=== PATIENT | male | born 1950 | race Asian ===

== ENCOUNTER 2017-05-07 00:07 | Inpatient (IN) | payer OTHER, MEDICAID ==
[~2017-05-07] VITALS: Ht 170.2 cm; Wt 77.1 kg
[2017-05-07 00:10] VITALS: BP 133/67
--- NOTE | 2017-05-07 00:43 | NUR ---
PT TAKEN TO BED 4
--- NOTE | 2017-05-07 00:50 | NUR ---
PATIENT PRESENTS TO ED WITH C/O CHEST PAIN . PT DENIES N/V/D; SKIN IS PINK/WARM/DRY; AAOX4 WITH EVEN AND STEADY GAIT; LUNGS CLEAR BL; HR EVEN AND REGULAR; PT DENIES ANY FEVER, SOB, OR COUGH AT THIS TIME; PATIENT STATES PAIN OF 5/10 AT THIS TIME; VSS; PATIENT POSITIONED FOR COMFORT; HOB ELEVATED; BEDRAILS UP X2; BED DOWN. ER MD MADE AWARE OF PT STATUS.
[2017-05-07] MEDS ORDERED: ASPIRIN 325 MG TAB PO ONE (00:55)
--- NOTE | 2017-05-07 00:57 | NUR ---
Dr. Navarrete evaluating patient at bedside.
[2017-05-07 01:10] LABS: BASOPHILS # (AUTO) 0.4 K/uL (0.00-0.22); EOSINOPHILS # (AUTO) 0.4 K/uL (0-0.4); WHITE BLOOD COUNT (AUTO) 9.1 K/uL (4.8-10.8)
[2017-05-07 01:14] LABS: HEMATOCRIT 41.4 % (36-52); LYMPHOCYTES % (AUTO) 22.3 % (20.5-51.1); MEAN CORPUSCULAR HEMOGLOBIN 33 pg (27-31); MEAN CORPUSCULAR HGB CONC 34 g/dL (33-37); MEAN CORPUSCULAR VOLUME 99 fL (80-94); MONOCYTES # (AUTO) 1.1 K/uL (0.8-1.0); MONOCYTES % (AUTO) 12.3 % (1.7-9.3); NEUTROPHILS # (AUTO) 5.2 K/uL (1.8-7.7); NEUTROPHILS % (AUTO) 57.4 % (42.2-75.2); PLATELET COUNT (AUTO) 137 K/uL (140-450); RED BLOOD CELL COUNT(AUTO) 4.19 MIL/uL (4.20-6.10); RED CELL DISTRIBUTION WIDTH 11.7 % (11.6-13.7)
[2017-05-07] MEDS ORDERED: ASPI81EC97 PO (01:17)
[2017-05-07] MEDS ORDERED: METO25TA3 PO (01:17)
[2017-05-07] MEDS ORDERED: ATOR10TA PO (01:17)
--- NOTE | 2017-05-07 01:28 | NUR ---
X-Ray at bedside.
[2017-05-07 01:33] LABS: ALBUMIN 3.4 g/dL (3.4-5.0); ANION GAP 10.8 (8-16); CALCIUM 7.8 mg/dL (8.5-10.1); CARBON DIOXIDE 28.8 mmol/L (21-32); CREATININE 0.9 mg/dL (0.6-1.3); POTASSIUM 3.6 mmol/L (3.5-5.1); TOTAL BILIRUBIN 0.3 mg/dL (0.0-1.0); TOTAL PROTEIN, SERUM 6.5 g/dL (6.4-8.2)
[2017-05-07 01:42] LABS: INR 1.1 (0.8-1.2); PARTIAL THROMBOPLASTIN TIME 28.2 secs (22-35.6)
[2017-05-07] MEDS ORDERED: LORazepam 1 MG TAB PO PRN (02:00)
[2017-05-07] MEDS ORDERED: NITROGLYCERIN 0.4 MG TAB SL PRN (02:00)
[2017-05-07] MEDS ORDERED: ALUMINUM HYD/MAG/SIMETHICONE 30 ML UDC PO PRN (02:00)
[2017-05-07] MEDS ORDERED: ONDANSETRON 4 MG/2 ML VIAL IVP PRN (02:00)
[2017-05-07] MEDS ORDERED: ACETAMINOPHEN 325 MG TAB PO PRN (02:00)
[2017-05-07] MEDS ORDERED: HYDROcodone/APAP 5/325 MG 1 TAB TAB PO PRN ×2 (02:00)
[2017-05-07] MEDS ORDERED: MORPHINE SULFATE 2 MG/ML SYR IVP PRN (02:00)
[2017-05-07] MEDS ORDERED: ZOLPIDEM 5 MG TAB PO PRN (02:00)
--- NOTE | 2017-05-07 02:33 | NUR ---
Patient will be admitted to care of DR RICO. Admited to TELE. Will go to room 104B. Belongings list completed. Report to RICK SPAULDING.
--- NOTE | 2017-05-07 03:09 | NUR ---
RECEIVED FROM ER PER JJ AWAKE AND ALERT. SPEAKS GERMAN. NO SOB. 02 SAT AT THIS TIME ROOM AIR 96 %. IVF SITE TO RIGHT WRIST #22. SKIN INTACT. DX. OF CHEST PAIN. TELEMETRY MONITORING. CARE PLANS FOR THE NIGHT DISCUSSED WITH HIM AND ORIENTED TO CALL LIGHT USE FOR ANY HELP HE MAY NEED. DENIES PAIN AT THIS TIME.
[2017-05-07 04:49] VITALS: BP 117/73
--- NOTE | 2017-05-07 05:07 | NUR ---
SLEEPING AT THIS TIME. TELEMETRY MONITORING. NO SOB. NO RESTLESSNESS. CALL LIGHT WITH IN REACH.
--- NOTE | 2017-05-07 07:20 | NUR ---
RECEIVED PATIENT REPORT AT BEDSIDE. PATIENT AWAKE, ALERT, ORIENTED AND AMBULATORY. NO S/S OF DISTRESS NOTED. NO C/O PAIN AT THIS TIME. IV LINE TO THE RIGHT WRIST SALINE LOCKED, IN INTACT AND ASYMPTOMATIC. PATIENT ON TELE MONITORING. BED LOWERED WITH CALL LIGHT WITHIN REACH. WILL CONTINUE TO MONITOR
--- NOTE | 2017-05-07 07:22 | NUR ---
ENDORSED TO THE NEXT RN FOR CONTINUITY OF CARE. AWAKE AND ALERT. PER PT"OK PAIN AND NOT BAD FOR NOW". VERBALIZES WELL. A/O X 4. ROM X 4.
[2017-05-07 08:00] VITALS: BP 115/63
--- NOTE | 2017-05-07 08:22 | NUR ---
PATIENT HAS BEEN SCREENED AND CATEGORIZED MODERATE NUTRITION RISK. PATIENT WILL BE SEEN WITHIN 3-5 DAYS OF ADMISSION. 05/09/17-05/11/[address]
[2017-05-07] MEDS: DOCUSATE SODIUM 100 MG GELCAP PO SCH (08:47)
[2017-05-07] MEDS: ECOTRIN 81 MG TABEC PO SCH (08:47)
[2017-05-07] MEDS: METOPROLOL 25 MG TAB PO SCH (09:00)
--- NOTE | 2017-05-07 09:00 | NUR ---
ADMINISTERED DUE MEDS. PT TOLERATED WELL. NO S/S OF DISTRESS NOTED
[2017-05-07 09:06] LABS: HEMATOCRIT 41.9 % (36-52); HEMOGLOBIN 14.2 g/dL (12.0-18.0); MEAN CORPUSCULAR HEMOGLOBIN 33 pg (27-31); MEAN CORPUSCULAR HGB CONC 34 g/dL (33-37); MEAN CORPUSCULAR VOLUME 98 fL (80-94); PLATELET COUNT (AUTO) 132 K/uL (140-450); RED BLOOD CELL COUNT(AUTO) 4.27 MIL/uL (4.20-6.10); RED CELL DISTRIBUTION WIDTH 11.6 % (11.6-13.7); WHITE BLOOD COUNT (AUTO) 6.3 K/uL (4.8-10.8)
[2017-05-07 09:24] LABS: ANION GAP 9.9 (8-16); CALCIUM 7.8 mg/dL (8.5-10.1); CARBON DIOXIDE 29.8 mmol/L (21-32); CREATININE 0.8 mg/dL (0.6-1.3); POTASSIUM 3.7 mmol/L (3.5-5.1)
[2017-05-07 09:28] LABS: PHOSPHORUS 2.8 mg/dL (2.5-4.9)
[2017-05-07 10:16] LABS: EOSINOPHILS % (MANUAL) 4 % (0-4); LYMPHOCYTES % (MANUAL) 29 % (20-46); MONOCYTES % (MANUAL) 8 % (5-12); NEUTROPHILS % (MANUAL) 59 (43-65); PLATELET ESTIMATE ADEQUATE
--- NOTE | 2017-05-07 10:35 | NUR ---
CM NOTE INITIAL REVIEW FAXED TO [employer] (FAX# [phone]) AND [employer] (FAX# [phone])
[2017-05-07 12:00] VITALS: BP 125/63
--- NOTE | 2017-05-07 12:30 | NUR ---
PATIENT HAVING LUNCH. PT TOLERATING DIET WELL. NO S/S OF DISTRESS NOTED
[2017-05-07 16:00] VITALS: BP 118/52
--- NOTE | 2017-05-07 16:20 | NUR ---
PATIENT ASLEEP IN BED. NO S/S OF DISTRESS NOTED
--- NOTE | 2017-05-07 19:30 | NUR ---
RECEIVED BEDSIDE REPORT FROM EPIFANIO CABRERA. PATIENT IS AWAKE, ALERT, AND IS RESTING IN BED WATCHING TV. NO SIGNS OF SHORTNESS OF BREATH OR DISTRESS NOTED. THERE IS A #22 IN THE PATIENT'S RIGHT WRIST SALINE LOCK. SITE IS DRY, INTACT, AND ASYMPTOMATIC. EXPLAINED PLAN OF CARE TO INCLUDE VITALS Q4H, TELEMETRY MONITORING, AND SCHEDULED MEDICATION ADMINISTRATION. PATIENT VERBALIZED UNDERSTANDING. PATIENT'S NEEDS MET AT THIS TIME. CALL LIGHT WITHIN REACH. WILL CONTINUE TO MONITOR PATIENT.
[2017-05-07 20:00] VITALS: BP 137/71
[2017-05-07] MEDS: ATORVASTATIN 20 MG TAB PO SCH (21:30)
--- NOTE | 2017-05-07 21:35 | NUR ---
TOLERATED DUE MEDICATIONS. NO S/S OF DISTRESS OR DISCOMFORT NOTED. CALL LIGHT WITHIN REACH. CONTINUE TO MONITOR PATIENT.
[2017-05-08] VITALS: BP 113/63
--- NOTE | 2017-05-08 | NUR ---
PATIENT RESTING COMFORTABLY IN BED, BUT CAN BE AROUSED BY NAME. VITALS ARE STABLE WITH NO REPORTS OF PAIN OR DISCOMFORT AT THIS TIME. PATIENT'S NEEDS MET AT THIS TIME. CALL LIGHT WITHIN REACH. CONTINUE TO MONITOR PATIENT.
--- NOTE | 2017-05-08 02:05 | NUR ---
ROUNDED ON PATIENT. PATIENT IS RESTING IN BED WITH NO SIGNS OF ACUTE DISTRESS NOTED. BREATHING IS EVEN AND UNLABORED. CALL LIGHT WITHIN REACH. WILL CONTINUE TO MONITOR PATIENT.
[2017-05-08 04:00] VITALS: BP 126/69
--- NOTE | 2017-05-08 04:00 | NUR ---
PATIENT SELF AMBULATED TO BATHROOM TO VOID. PATIENT SELF AMBULATED BACK TO BED. VITAL SIGNS ARE STABLE. NO S/S OF SOB OR DISTRESS. PATIENT DENIES PAIN OR DISCOMFORT. PATIENT'S NEEDS MET AT THIS TIME. CALL LIGHT WITHIN REACH. CONTINUE TO MONITOR PATIENT.
--- NOTE | 2017-05-08 05:10 | NUR ---
PATIENT IS RESTING COMFORTABLY IN BED WITH NO SIGNS OF DISTRESS OR DISCOMFORT NOTED. CALL LIGHT WITHIN REACH. CONTINUE TO MONITOR PATIENT.
[2017-05-08 07:03] LABS: ANION GAP 8.9 (8-16); CALCIUM 8.1 mg/dL (8.5-10.1); CARBON DIOXIDE 31.9 mmol/L (21-32); CREATININE 0.9 mg/dL (0.7-1.3); POTASSIUM 3.8 mmol/L (3.5-5.1)
--- NOTE | 2017-05-08 07:10 | NUR ---
RECEIVED PATIENT AT BEDSIDE. PATIENT ASLEEP BUT AROUSABLE. NO S/S OF DISTRESS NOTED. NO C/O PAIN AT THIS TIME. PATIENT ON ROOM AIR. PATIENT ON TELE MONITORING. BED LOWERED WITH CALL LIGHT WITHIN REACH. WILL CONTINUE TO MONITOR
[2017-05-08 07:32] LABS: BASOPHILS # (AUTO) 0.4 K/uL (0.00-0.22); BASOPHILS % (AUTO) 4.6 % (0.0-2.0); EOSINOPHILS # (AUTO) 0.3 K/uL (0-0.4); HEMATOCRIT 43.7 % (36-52); HEMOGLOBIN 14.8 g/dL (12.0-18.0); LYMPHOCYTES # (AUTO) 1.8 K/uL (2.0-11.5); LYMPHOCYTES % (AUTO) 19.1 % (20.5-51.1); MEAN CORPUSCULAR HEMOGLOBIN 33 pg (27-31); MEAN CORPUSCULAR HGB CONC 34 g/dL (33-37); MEAN CORPUSCULAR VOLUME 98 fL (80-94); MONOCYTES % (AUTO) 11.3 % (1.7-9.3); NEUTROPHILS # (AUTO) 5.8 K/uL (1.8-7.7); PLATELET COUNT (AUTO) 128 K/uL (140-450); RED BLOOD CELL COUNT(AUTO) 4.46 MIL/uL (4.20-6.10); RED CELL DISTRIBUTION WIDTH 11.7 % (11.6-13.7); WHITE BLOOD COUNT (AUTO) 9.3 K/uL (4.8-10.8)
[2017-05-08 08:00] VITALS: BP 125/73
[2017-05-08] MEDS: METOPROLOL 25 MG TAB PO SCH (09:00)
[2017-05-08] MEDS: ECOTRIN 81 MG TABEC PO SCH (09:56)
[2017-05-08] MEDS: DOCUSATE SODIUM 100 MG GELCAP PO SCH (09:56)
[2017-05-08 12:00] VITALS: BP 108/67
--- NOTE | 2017-05-08 13:00 | NUR ---
PATIENT IS RESTING IN BED WITH NO SIGNS OF ACUTE DISTRESS NOTED. BREATHING IS EVEN AND UNLABORED. CALL LIGHT WITHIN REACH. WILL CONTINUE TO MONITOR PATIENT.
--- NOTE | 2017-05-08 15:00 | NUR ---
CM NOTE CONCURRENT REVIEW FAXED TO [facility] [employer] (FAX# [phone]) AND [employer] (FAX# [phone])
[2017-05-08 16:00] VITALS: BP 122/70
--- NOTE | 2017-05-08 16:40 | NUR ---
PATIENT SITTING IN THE CHAIR AT BEDSIDE. NO S/S OF DISTRESS NOTED. NO C/O PAIN
--- NOTE | 2017-05-08 18:45 | NUR ---
PATIENT SEEN BY DR Ranulfo RICO
--- NOTE | 2017-05-08 19:15 | NUR ---
RECEIVED REPORT FROM RICK GODFREY AT BEDSIDE. INITIAL ASSESSMENT COMPLETED. PT AAOX4. PT STABLE. PT'S SKIN INTACT. PT HAS IV ON RIGHT WRIST G 22; ASYMPTOMATIC, PATENT AND INTACT SL. ORIENTED PT TO ROOM AND SURROUNDINGS AND USE OF CALL LIGHT. EXPLAINED PLAN OF CARE TO PT AND HE VERBALIZED UNDERSTANDING. CALL LIGHT WITHIN REACH.
--- NOTE | 2017-05-08 19:32 | NUR ---
PATIENT REPORT GIVEN AT BEDSIDE. PATIENT ENDORSED IN STABLE CONDITION
[2017-05-08 20:00] VITALS: BP 117/79
[2017-05-08] MEDS: ATORVASTATIN 20 MG TAB PO SCH (21:30)
--- NOTE | 2017-05-08 21:37 | NUR ---
PT TOLERATED 2100 MEDS WELL, CALL LIGHT WITHIN REACH.
--- NOTE | 2017-05-08 23:25 | NUR ---
CHECKED ON PT. PT SLEEPING COMFORTABLY. NO SIGNS OF DISTRESS NOTED. CALL LIGHT WITHIN REACH.
[2017-05-09] VITALS: BP 114/66
--- NOTE | 2017-05-09 01:47 | NUR ---
PT STABLE, VS STABLE. WILL CONTINUE TO MONITOR PT.
--- NOTE | 2017-05-09 03:29 | NUR ---
CHECKED ON PT. PT STABLE, SLEEPING.
[2017-05-09 04:49] VITALS: BP 118/68
--- NOTE | 2017-05-09 05:04 | NUR ---
PT STABLE, PT AWARE THAT TODAY HE WILL HAVE WILLIAN SCAN. CALL LIGHT WITHIN REACH.
[2017-05-09 06:31] LABS: BASOPHILS # (AUTO) 0.3 K/uL (0.00-0.22); BASOPHILS % (AUTO) 4.3 % (0.0-2.0); EOSINOPHILS # (AUTO) 0.3 K/uL (0-0.4); HEMATOCRIT 43.5 % (36-52); HEMOGLOBIN 14.9 g/dL (12.0-18.0); LYMPHOCYTES # (AUTO) 2.2 K/uL (2.0-11.5); LYMPHOCYTES % (AUTO) 29.5 % (20.5-51.1); MEAN CORPUSCULAR HEMOGLOBIN 34 pg (27-31); MEAN CORPUSCULAR HGB CONC 34 g/dL (33-37); MEAN CORPUSCULAR VOLUME 98 fL (80-94); MONOCYTES # (AUTO) 0.9 K/uL (0.8-1.0); MONOCYTES % (AUTO) 12.6 % (1.7-9.3); NEUTROPHILS # (AUTO) 3.7 K/uL (1.8-7.7); NEUTROPHILS % (AUTO) 49.6 % (42.2-75.2); PLATELET COUNT (AUTO) 129 K/uL (140-450); RED BLOOD CELL COUNT(AUTO) 4.44 MIL/uL (4.20-6.10); RED CELL DISTRIBUTION WIDTH 11.5 % (11.6-13.7); WHITE BLOOD COUNT (AUTO) 7.4 K/uL (4.8-10.8)
[2017-05-09 06:53] LABS: ANION GAP 11.6 (8-16); CALCIUM 8.4 mg/dL (8.5-10.1); CARBON DIOXIDE 28.3 mmol/L (21-32); CREATININE 0.9 mg/dL (0.7-1.3); POTASSIUM 3.9 mmol/L (3.5-5.1)
[2017-05-09] MEDS ORDERED: REGADENOSON 0.4 MG/5 ML SYR IV SCH (07:00)
--- NOTE | 2017-05-09 07:15 | NUR ---
ENDORSED PLAN OF CARE TO DAY SHIFT NURSE. PT IN STABLE CONDITION.
--- NOTE | 2017-05-09 07:16 | NUR ---
RECEIVED CARE OF PT FROM [employer]OCIATE NURSE AT BEDSIDE. PT IS SLEEPING. PT HAS IV ON R WRIST 22 G SL. PT HAS BEEN KEPT NPO FOR LEXISCAN TODAY. UPDATED THE BOARD. CALL LIGHT WITHIN REACH. WILL CONTINUE TO MONITOR.
[2017-05-09 08:00] VITALS: BP 133/74
--- NOTE | 2017-05-09 09:00 | NUR ---
PT STATED HE HAS NO KNOWN ALLERGIES.
[2017-05-09] MEDS: METOPROLOL 25 MG TAB PO SCH (09:13)
[2017-05-09] MEDS: DOCUSATE SODIUM 100 MG GELCAP PO SCH (09:13)
[2017-05-09] MEDS: ECOTRIN 81 MG TABEC PO SCH (09:13)
--- NOTE | 2017-05-09 09:30 | NUR ---
HOSPITAL RECEPTIONIST TOOK PT FOR LEXISCAN. PT IN STABLE CONDITION.
--- NOTE | 2017-05-09 11:20 | NUR ---
PT CAME BACK TO UNIT. VS WNL. PROVIDED SNACKS. CALLED FOR EARLY TRAY. CALL LIGHT WITHIN REACH. WILL CONTINUE TO MONITOR.
--- NOTE | 2017-05-09 11:21 | NUR ---
LEXISCAN STRESS TEST DONE
[2017-05-09 12:00] VITALS: BP 133/74
--- NOTE | 2017-05-09 14:00 | NUR ---
PT CAME BACK TO UNIT AFTER 2ND ROUND OF PICTURES FOR LEXISCAN. PT STABLE. CALL LIGHT WITHIN REACH. WILL CONTINUE TO MONITOR.
--- NOTE | 2017-05-09 15:30 | NUR ---
VS WNL. PROVIDED WARM WATER PER REQUEST. CALL LIGHT WITHIN REACH. WILL CONTINUE TO MONITOR.
[2017-05-09 16:00] VITALS: BP 114/64
--- NOTE | 2017-05-09 17:00 | NUR ---
PT RESTING COMFORTABLY IN BED. CALL LIGHT WITHIN REACH. WILL CONTINUE TO MONITOR.
[2017-05-09 18:53] VITALS: BP 114/64
--- NOTE | 2017-05-09 19:35 | NUR ---
WENT OVER PAPERWORK WITH PT. PT VERBALIZED UNDERSTANDING AND SIGNED ALL PAPERS. IV REMOVED CANNULA INTACT.
--- NOTE | 2017-05-09 19:40 | NUR ---
WALKED PT OUT OF UNIT. PT REFUSED WHEELCHAIR. ALL BANDS REMOVED. PT TOOK ALL BELONGINGS. PT IN STABLE CONDITION.
== END 2017-05-09 19:40 | disposition home or self-care (01) | DRG 206 ==
LOC: MED 00:07 → MTU 02:05
PROVIDERS: ADMIT Preventive Medicine Preventive Medicine/Occupational Environmental Medicine; ATTEND Preventive Medicine Preventive Medicine/Occupational Environmental Medicine
DX: M94.0 Chondrocostal junction syndrome [Tietze] (principal); I10 Essential (primary) hypertension; E78.5 Hyperlipidemia, unspecified; Z95.1 Presence of aortocoronary bypass graft; Z79.82 Long term (current) use of aspirin; Z79.899 Other long term (current) drug therapy
CPT/HCPCS: 36415; 71010; 80048; 80053; 82550; 82553; 83690; 83735; 84100; 84484; 85025; 85610; 85730; 87081; 93005; 93017; 99285; A9500; A9502; J1644; J2785; Q0092

== ENCOUNTER 2017-11-11 16:26 | Emergency (ER) | payer OTHER, MEDICAID ==
[~2017-11-11] VITALS: Ht 167.6 cm; Wt 81.6 kg
[~2017-11-11 16:26] MED LIST: ASPI81EC97 PO; ATOR10TA PO; METO25TA14 PO
[2017-11-11 17:49] VITALS: BP 145/74
--- NOTE | 2017-11-11 20:20 | NUR ---
LASHAUN VELAZQUEZ REMOVING SUTURES ON L HAND.
--- NOTE | 2017-11-11 20:29 | NUR ---
67 Y/O M W/C/O F/U ON LAC AC REPAIR ON LEFT HAND SEEN LAST 11/02/17 S/P FALL; DENIES ANY PAINHX; HTN, CARDIAC DISORDERSRX; METOPROLOL, ASPIRIN, LIPITOR. ER MADE AWARE.
[2017-11-11 20:45] VITALS: BP 138/78
--- NOTE | 2017-11-11 20:45 | NUR ---
Patient discharged with v/s stable. Written and verbal after care instructions given and explained. Patient verbalized understanding. Ambulatory with steady gait. All questions addressed prior to discharge. Advised to follow up with PMD.
== END 2017-11-11 20:45 | disposition home or self-care (01) ==
LOC: MED 16:26
DX: S61.412D Laceration without foreign body of left hand, subsequent encounter (principal); I25.2 Old myocardial infarction; I10 Essential (primary) hypertension; Z79.82 Long term (current) use of aspirin; Z79.899 Other long term (current) drug therapy
CPT/HCPCS: 99281

== ENCOUNTER 2022-07-03 08:32 | Emergency (ER) | payer OTHER ==
[~2022-07-03] VITALS: Ht 167.6 cm; Wt 79.2 kg
[2022-07-03 08:40] VITALS: BP 144/79
--- NOTE | 2022-07-03 08:46 | NUR ---
PT AMB TO BED 11.
--- NOTE | 2022-07-03 08:58 | NUR ---
WALKED IN C/O R UPPER ARM PAIN AND REDNESS S/P BEE STING YESTERDAY. DENIES SOB OR THROAT TIGHTENING. REDNESS AND SWELLING IS LOCALIZED TO THE R UPPER ARM. VITALS STABLE. AAOX4, AMBULATORY PMH: CARDIAC DISORDERS, OPEN HEART 2015, HTN
[2022-07-03 08:59] VITALS: BP 142/85
[2022-07-03] MEDS ORDERED: CEPH-588 PO (09:29)
[2022-07-03] MEDS ORDERED: CETI10TA81 PO (09:29)
[2022-07-03] MEDS ORDERED: PRED50TA2 PO (09:29)
== END 2022-07-03 09:41 | disposition home or self-care (01) ==
LOC: MED 08:32
DX: T63.461A Toxic effect of venom of wasps, accidental (unintentional), initial encounter (principal); I10 Essential (primary) hypertension; Z79.899 Other long term (current) drug therapy; Z79.82 Long term (current) use of aspirin; Y92.89 Other specified places as the place of occurrence of the external cause
CPT/HCPCS: 99283